=== PATIENT | female | born 1975 | race Caucasian/White ===

== ENCOUNTER 2016-11-05 13:38 | Emergency (ER) | payer OTHER ==
[~2016-11-05] VITALS: Ht 167.6 cm; Wt 58.8 kg
[~2016-11-05 13:38] MED LIST: ADVAIR 100-501 EACH IH; AMBIEN10 MG PO; CLONIDINE HCL0.2 MG PO; COMBIVENT RESPIM4 GM IH; CYCLOBENZAPRINE10 MG PO; DOXYCYCLINE HY100 MG PO; FLEXERIL10 MG PO; LYRICA50 MG PO; MOTRIN800 MG PO; PERCOCET 7.5-31 EACH PO; PROVENTIL,2.5 MG/0.5 IH; ROBITUSSIN100 MG/5 M PO; SPIRIVA1 INHALATI IH
[2016-11-05] MEDS ORDERED: OXYCODONE-APAP1 EACH PO (14:41)
[2016-11-05] MEDS ORDERED: CLEOCIN300 MG PO (16:16)
[2016-11-05 16:27] VITALS: BP 131/84
== END 2016-11-05 16:28 | disposition home or self-care (01) ==
LOC: EME 13:38
DX: K04.7 Periapical abscess without sinus (principal); J44.9 Chronic obstructive pulmonary disease, unspecified; G89.29 Other chronic pain; Z79.891 Long term (current) use of opiate analgesic; F17.200 Nicotine dependence, unspecified, uncomplicated
CPT/HCPCS: 99281; 99284

== ENCOUNTER 2017-03-03 13:55 | Emergency (ER) | payer OTHER ==
[~2017-03-03] VITALS: Ht 167.6 cm; Wt 56.8 kg
[~2017-03-03 13:55] MED LIST changes: +CLEOCIN300 MG PO; +OXYCODONE-APAP1 EACH PO
[2017-03-03] MEDS ORDERED: KEFLEX500 MG PO (16:45)
[2017-03-03 16:59] VITALS: BP 86/52
== END 2017-03-03 17:00 | disposition home or self-care (01) ==
LOC: EME 13:55
DX: S91.115A Laceration without foreign body of left lesser toe(s) without damage to nail, initial encounter (principal); S92.532A Displaced fracture of distal phalanx of left lesser toe(s), initial encounter for closed fracture; W20.8XXA Other cause of strike by thrown, projected or falling object, initial encounter; F17.200 Nicotine dependence, unspecified, uncomplicated
CPT/HCPCS: 73630; 99281; 99285; J0690

== ENCOUNTER 2017-04-15 12:53 | Emergency (ER) | payer OTHER ==
[~2017-04-15] VITALS: Ht 167.6 cm; Wt 51.2 kg
[~2017-04-15 12:53] MED LIST changes: +KEFLEX500 MG PO
[2017-04-15] MEDS ORDERED: NAPROXEN500 MG PO (15:27)
[2017-04-15 15:53] VITALS: BP 124/88
== END 2017-04-15 15:54 | disposition home or self-care (01) ==
LOC: EME 12:53
DX: S60.221A Contusion of right hand, initial encounter (principal); W22.8XXA Striking against or struck by other objects, initial encounter
CPT/HCPCS: 73130

== ENCOUNTER 2017-08-12 17:03 | Emergency (ER) | payer OTHER ==
[~2017-08-12] VITALS: Ht 167.6 cm; Wt 50.6 kg
[~2017-08-12 17:03] MED LIST changes: +NAPROXEN500 MG PO
[2017-08-12] MEDS ORDERED: NAPROSYN500 MG PO (19:52)
[2017-08-12] MEDS ORDERED: BACLOFEN10 MG PO (19:52)
[2017-08-12 20:08] VITALS: BP 145/56
== END 2017-08-12 20:19 | disposition home or self-care (01) ==
LOC: EME 17:03
DX: S39.012A Strain of muscle, fascia and tendon of lower back, initial encounter (principal); V44.5XXA Car driver injured in collision with heavy transport vehicle or bus in traffic accident, initial encounter; Y92.410 Unspecified street and highway as the place of occurrence of the external cause; G89.29 Other chronic pain; J44.9 Chronic obstructive pulmonary disease, unspecified; F17.200 Nicotine dependence, unspecified, uncomplicated; Z71.6 Tobacco abuse counseling; Z79.891 Long term (current) use of opiate analgesic
CPT/HCPCS: 71020; 99281; 99283; J3010

== ENCOUNTER 2017-11-09 18:40 | Emergency (ER) | payer OTHER ==
[~2017-11-09] VITALS: Ht 167.6 cm; Wt 51.0 kg
[~2017-11-09 18:40] MED LIST changes: +BACLOFEN10 MG PO; +NAPROSYN500 MG PO
[2017-11-09 19:23] LABS: BASOPHIL (%) 0.6 % (0-1); BASOPHIL COUNT 0.1 K/uL (0-0.1); EOSINOPHIL (%) 1.6 % (0-5); EOSINOPHIL COUNT 0.2 K/uL (0-0.3); HEMATOCRIT 40.1 % (36.0-46.0); HEMOGLOBIN 13.1 G/DL (11.9-15.5); IMMATURE GRANULOCYTE (%) 0.2 % (0.0-0.7); LYMPHOCYTE COUNT 3.5 K/uL (1.0-2.8); MCHC 32.7 G/DL (30.0-36.0); MCV 88.9 FL (83-99); MONOCYTE (%) 2.9 % (3-12); MONOCYTE COUNT 0.3 K/uL (0-0.8); NEUTROPHIL (%) 59.7 % (45-76); PLATELET COUNT 251 K/uL (156-360); RBC DIS.WIDTH-CV 14.4 % (11.8-14.6); RBC DIS.WIDTH-SD 46.5 % (39-53); RED BLOOD COUNT 4.51 M/uL (3.80-5.20); WHITE BLOOD COUNT 10.1 K/uL (4.1-10.2)
[2017-11-09 19:30] LABS: PTT 29.7 SEC (25-37)
[2017-11-09 19:32] LABS: CHLORIDE 109 mEq/L (99-109); SODIUM 141 mEq/L (136-147)
[2017-11-09 19:34] LABS: GLUCOSE 128 mg/dL (70-99)
[2017-11-09 19:37] LABS: CREATININE 0.8 mg/dL (0.6-1.3); GFR ESTIMATE (CALCULATED) > 59 mL/min/
[2017-11-09 19:38] LABS: UREA NITROGEN (BUN) 11 mg/dL (9-23)
[2017-11-09 20:41] VITALS: BP 137/87
== END 2017-11-09 20:27 | disposition home or self-care (01) ==
LOC: EME 18:40
PROVIDERS: Physician Assistant
DX: M79.662 Pain in left lower leg (principal); R07.9 Chest pain, unspecified; F17.200 Nicotine dependence, unspecified, uncomplicated; Z88.6 Allergy status to analgesic agent; Z88.5 Allergy status to narcotic agent; Z88.8 Allergy status to other drugs, medicaments and biological substances; Z91.041 Radiographic dye allergy status
CPT/HCPCS: 71046; 80048; 85025; 85610; 85730; 93971; 99281; 99283